=== PATIENT | female | born 1950 | race Caucasian/White ===

== ENCOUNTER 2020-12-13 12:45 | Inpatient (IN) | payer OTHER ==
[~2020-12-13] VITALS: Ht 162.6 cm; Wt 76.2 kg
--- NOTE | ~2020-12-13 | EMS ---
[facility] [address] [place] [address] EMS Patient Care Report Name: GABRIELLA LICONA Room #: 170-3 ADM IN M.R.#: [id number] Admission: 12/13/20 Attend Phys: Janet Ha MD Discharge: Date of : 48 Report #: [id number] THIS REPORT FOR: //name// Report Transmitted: 12/14/2020 07:59 EMS Care Summary [place], [place]/[facility] Incident [id number] @ 12/13/2020 12:25 Incident Location [address] [place] Patient GABRIELLA LICONA Female, 70 Years 1950 Patient Address [address] [place], [place] [address] [address] [address] Patient History Congestive Heart Failure (CHF),Diabetes,Hypertension (HTN),Pacemaker/AICD,End Stage Renal Disease (ESRD),Cirrhosis of Liver,Liver Failure,Coronary Artery Bypass Graft (CABG),Atrial Fibrillation,Peripheral Vascular Disease,Dialysis,Myocardial Infarction (FL), Patient Allergies No known allergies, Patient Medications Furosemide, Ascorbic Acid, Toradol, Metoprolol, Atorvastatin, Nitroglycerin, Midodrine, Prednisone, Tresiba, Chief Complaint Rectal bleeding Disposition Transported No Lights/[place] Dispatch Reason Sick Person Transported To [facility] [address] [place] [address] EMS Patient Care Report Name: GABRIELLA LICONA Room #: 170-3 ADM IN [facility].#: [id number] Admission: 12/13/20 Attend Phys: Janet Ha MD Discharge: Date of : 48 Report #: [id number] Narrative Arrived to meet P36 on scene with the patient. P36 and the [place] staff reported that the patient had significant rectal bleeding. NH staff reported that the patient had started to have bleeding at some point during the day, unknown what time specifically. Patient reported pain in her buttocks. Patient denied any chest pain, soa, dizziness, lightheadedness, or n/v. Patient had multiple necrotic fingers and toes and multiple necrotic wounds on her legs and abdomen, all of which were baseline for the patient. NH staff reported that prior to P36 or M42 arriving on scene the patient had a blood glucose of 40. NH staff reported giving the patient glucagon prior to arrival of either M42 or P36. Patient had severe pressure ulcer(s) to her buttocks region, the blood of the sheet underneath the patient was bright red and did not appear to have contain any stool. Patient was profoundly hypotensive with an absent radial pulse and weak thready carotid pulse. IV access unobtainable due to patient peripheral vascular disease. Patient transported and transferred to receiving facility without change in patient condition. Initial Vitals @12:38P: 80,R: 14,BP: 43/18,Pain: 4/10,GCS: 15,Revised Trauma: 9, @12:37P: 80,R: 14,BP: 58/40,Pain: 4/10,GCS: 15,Glucose: 286,Revised Trauma: 10, Assessments @12:31MENTAL:Place Oriented,Time Oriented,Person Oriented,Event Oriented,SKIN:Pale,HEENT:Head/Face: No Abnormalities,Neck/Airway: No Abnormalities,LUNG SOUNDS:ABDOMEN:PELVIS//GI:Rectal Bleeding,Pelvis Other,EXTREMITIES:Left Arm: No Abnormalities,Right Arm: No Abnormalities,Left Leg: No Abnormalities,Right Leg: No Abnormalities,PULSE:Radial: Absent,Carotid: 1+ Thready,NEURO:No Abnormalities, Impression Hemorrhage Procedures @PTAALS AssessmentResponse: UnchangedSucceeded@12:373-Lead ECGResponse: UnchangedSucceeded Timeline CLINICAL ACCOUNT LIAISON,ALS Assessment,Response: UnchangedSucceeded, 12:12,Call Received 12:12,Dispatch Notified 12:25,Dispatched 12:25,En Route 12:29,On Scene 12:31,At Patient 12:37,3-Lead ECG,Response: UnchangedSucceeded, 12:37,BP: 58/40 M,PULSE: 80,RR: 14 R,SPO2: Ox,ETCO2: ,B,PAIN: 4,GCS: 15, [address] [address] EMS Patient Care Report Name: GABRIELLA LICONA Room #: 170-3 ADM IN M.R.#: [id number] Admission: 12/13/20 Attend Phys: Janet Ha MD Discharge: Date of : 48 Report #: [id number] 12:38,BP: 43/18 M,PULSE: 80,RR: 14 R,SPO2: Ox,ETCO2: ,BG: ,PAIN: 4,GCS: 15, 12:39,Depart Scene 12:41,At Destination 12:57,Call Closed Disclaimer v1.1 Copyright 2020 [employer] This EMS Care Summary contains data elements from the applicable legal record (which may be displayed differently). It is designed to provide pertinent information for the following purposes: continuity of care, clinical quality, and state data reporting. The complete legal record is available to ED staff and administrators of the receiving hospital in [employer] Patient Tracker. All data is provided "as is."
[2020-12-13 12:46] VITALS: BP 90/20
[2020-12-13 13:10] LABS: HEMATOCRIT 29.1 % (37.0-47.0); HEMOGLOBIN 9.2 gm/dL (12.0-15.0); MCH 28.2 pg (26.0-34.0); MCHC 31.7 g/dL (28.0-37.0); PLATELET COUNT 135 thou/uL (150-400); RBC 3.26 mil/uL (4.20-5.00); RDW 19.1 % (10.5-14.5); WBC 24.5 thou/uL (4.0-11.0)
[2020-12-13 13:15] LABS: CALCIUM 8.1 mg/dL (8.5-10.1); CREATININE 4.5 mg/dL (0.6-1.0); POTASSIUM 4.5 mmol/L (3.5-5.1)
[2020-12-13 13:21] LABS: ALBUMIN 1.6 g/dL (3.4-5.0); TOTAL PROTEIN 4.9 g/dL (6.4-8.2)
[2020-12-13 13:49] LABS: ABSOLUTE NEUTROPHILS 22.5 thou/uL (1.4-8.2); PLATELET ESTIMATE NORMAL
--- NOTE | 2020-12-13 13:51 | EKG ---
[address] [place] [address] ELECTROCARDIOGRAM REPORT Name: GABRIELLA LICONA Room #: REG [facility]#: [id number] Admission: 12/13/20 Attend Phys: Discharge: Date of : 48 Report #: [id number] [facility] ED Test Date: 2020-12-13 Test Time: 13:06:44 Pat Name: GABRIELLA LICONA Department: Room: Gender: F Director Of Outside Sales: keli : 1950 Requested By: Monster Oswald Order Number: [id number] MD: Deandre Recinos Measurements Intervals Wallace Rate: 90 P: 68 MO: 145 QRS: -11 QRSD: 89 T: -24 QT: 398 QTc: 487 Interpretive Statements Sinus rhythm Borderline T abnormalities, diffuse leads Borderline prolonged QT interval No previous ECG available for comparison Electronically Signed On 12-13-2020 13:51:03 CDT by Deandre Recinos [email or web address] <ELECTRONICALLY SIGNED> By: Deandre Recinos MD, [facility] 12/13/20 1351 1306 1306 Deandre Recinos MD, FACC /EPI
[2020-12-13 14:35] LABS: APTT 37.2 Seconds (24.5-32.8); INR 1.39; PROTIME 14.9 Seconds (10.5-12.1)
--- NOTE | 2020-12-13 14:47 | NUR ---
A #6F TRIPLE LUMEN CENTRAL LINE WAS PLACED PER HOSPITAL POLICY AFTER A BEDSIDE TIMEOUT WAS COMPLETED. THE PATIENT VERBALIZED UNDERSTANDING OF BENIFITS AND RISK FOR INFECTION AND VESSEL WAS DAMAGE. THE 25CM LINE ADVANCED WITHOUT DIFFICULTY. A STAT CHEST XRAY CONFIRMED THE LINE WAS IN PROPER POSITION. ER NOTIFIED AND LINE RELEASED FOR USE
[2020-12-13 15:05] LABS: % SATURATION 35 % (20-39); IRON 26 ug/dL (50-170); TIBC 74 ug/dL (250-450)
[2020-12-13 15:40] LABS: FOLIC ACID 11.9 ng/mL (8.6-58.9)
--- NOTE | 2020-12-13 16:20 | NUR ---
DR WARD PAGED AND IS AWARE OF LOW B/P, DR WARD STATED THAT B/P'S ARE NORMALLY LOW AND TO DC ANY IV FLUIDS INFUSING. B/P 69/20. DR CHAPMAN AWARE OF CONVERSATION WITH DR WARD.
--- NOTE | 2020-12-13 18:04 | NUR ---
70 year old female who came into the ER at [facility] with rectal bleeding. Patient resides at [facility]. The patients spouse reports that patient has been getting paracentesis done every week. She was apparently turned down by and [facility] for liver transplant. He reports that the bleeding started yesterday at the SNF. The patient has been admitted for Hematochezia, Diverticular bleed, Symptomatic hypotension, Cirrhosis of the liver - Ascites, Diabetes, Multiple necrotic digits as elbow, thigh and pannus, ESRD and warrant server debility. Consults for Cardiology, Renal and Gi have been ordered. Discussion on palliative care versus hospice have begun with primary and renal team. Notably patient is Negative in ED for ID now and ED triage assessment notes no to vaccination status. And plan is to admit to CCU status in critical condition. Of note patient was documented as alert and oriented x4 and participated with ED physician in her care. Patients spouse Monster Cedeño is listed as next of kin at [phone]. Sofi at [facility] is aware of patients admission and will follow with CM team and plan of care once established and discussed with Medical Team and family. CM will follow for discharge needs once plan of care has been determined.
[2020-12-13 20:16] LABS: HEMATOCRIT 22.6 % (37.0-47.0)
[2020-12-13 20:22] LABS: HEMOGLOBIN 7.2 gm/dL (12.0-15.0)
[2020-12-13] MEDS ORDERED: ASA81BEC PO (21:38)
[2020-12-13] MEDS ORDERED: APAP W/CODEINE1 TA2 PO (21:38)
[2020-12-13] MEDS ORDERED: VITAMIN C500 M2 PO (21:38)
[2020-12-13] MEDS ORDERED: CEPACOL SORE T1 EAC7 PO (21:39)
[2020-12-13] MEDS ORDERED: FUROSEMIDE 40 M40 MG PO (21:39)
[2020-12-13] MEDS ORDERED: ATORVASTATIN CA80 MG PO (21:39)
[2020-12-13] MEDS ORDERED: ACULAR LS5 ML OPHTHALMIC (21:40)
[2020-12-13] MEDS ORDERED: MEGESTROL ACETA40 MG PO (21:41)
[2020-12-13] MEDS ORDERED: NEPHRO-VITE TA0.8 MG PO (21:43)
[2020-12-13] MEDS ORDERED: MIDODRINE HCL 55 M1 PO (21:43)
[2020-12-13] MEDS ORDERED: TOPROL XL25 MG PO (21:43)
[2020-12-13] MEDS ORDERED: NITROSTAT0.4 M1 DISSOLVE (21:44)
[2020-12-13] MEDS ORDERED: OXYCODONE HCL5 MG PO (21:45)
[2020-12-13] MEDS ORDERED: PROTONIX40 M2 PO (21:46)
[2020-12-13] MEDS ORDERED: PREDNISOLONE ACE5 ML RT. EYE (21:46)
[2020-12-13] MEDS ORDERED: RENVELA0.8 GM PO (21:47)
[2020-12-13] MEDS ORDERED: REFRESH CLASSI1 EACH EA. EYE (21:47)
[2020-12-13] MEDS ORDERED: SODIUM THI12.5 GM/50 IV PUSH (21:48)
[2020-12-13] MEDS ORDERED: TRESIBA100 UNIT/1 SUBQ (21:49)
--- NOTE | 2020-12-13 23:14 | NUR ---
TRINIDAD CALLED TO INFORM HIM OF HOSPITALIST ORDER TO TRANSFUSE UNIT OF BLOOD.
[2020-12-14] VITALS (44 sets, daily range): BP systolic 50–147; BP diastolic 21–108
[2020-12-14 03:42] LABS: BE(vivo) -2.3 mmol/L (-2 to +3); HCO3 21.2 mmol/L (22.0-26.0); PCO2 31.2 mmHg (35.0-45.0); PO2 263.4 mmHg (80.0-100.0); sO2 99.7 % (92.0-98.0)
--- NOTE | 2020-12-14 05:07 | NUR ---
PER DR. BOYD, NURSING STAFF SHOULD CONTINUE WITH TRANSFUSION OF SECOND UNIT OF BLOOD AND "SUPPORT HER FOR A FEW MORE HOURS" AND INTERVENTIONAL RADIOLOGY WILL "GET TO HER IN THE LIGHT OF DAY". ORDERS VERBALLY REPEATED BACK TO PHYSICIAN WITH CURRENT VITAL SIGNS OF BP: 77/57, HR: [address] LAWLER HAS BEEN PAGED MULTIPLE TIMES FOR FURTHER DIRECTION AND ORDERS REQUESTED BY JOANNA GUSTAFSON NP WITH NO RETURN CALL AT THIS TIME. NO NEW ORDERS RECEIVED. WILL CONTINUE TO MONITOR AND "SUPPORT" PATIENT WITH CURRENT ORDERS
--- NOTE | 2020-12-14 06:13 | NUR ---
DR. LAWLER CALLED BACK AT THIS TIME AFTER MULTIPLE ATTEMPTS TO REACH FOR NEW ORDERS IN HOW CARE SHOULD BE MANAGED AT THIS POINT. DR. LAWLER INFORMED OF PATIENT CONDITION, REQUIRING OXYGEN SUPPORT, INCREASED BLEEDING FROM RECTUM, DECREASING BLOOD PRESSURES. DR. LAWLER STATES HE WILL BE IN THE HOSPITAL IN APPROX 30 MINUTES AND HE "WILL SEE WHAT HE CAN DO" AND "SOMEONE NEEDS TO SPEAK WITH THE SON" (PATIENT WAS AT BEDSIDE FOR MOST OF THE NIGHT, PERHAPS DR. LAWLER MEANT THAT SOMEONE NEEDS TO SPEAK WITH THE PATIENT WHO IS ALERT AND ORIENTED AND THE REGARDING PLAN OF CARE AND PROGNOSIS). NO NEW ORDERS RECEIVED. WILL CONTINUE TO MONITOR AND ATTEMPT TO SUPPORT PATIENT WITH NO NEW ORDERS.
--- NOTE | 2020-12-14 07:00 | NUR ---
DR. LAWLER TO BEDSIDE TO ASSESS PATIENT AT THIS TIME. PHYSICIAN MOTIONED TO THIS NURSE TO COME INTO THE ROOM BY WIGGLING HIS FINGER. PHYSICIAN AT BEDSIDE STATING THAT PATIENT HAS NORMALLY LOW BLOOD PRESSURE AND THAT READINGS ARE NOT ACCURATE. PHYSICIAN UNABLE TO PROVIDE ANY SUGGESTION FOR HOW HE WOULD LIKE ACCURATE BLOOD PRESSURES MONITORED DUE TO PATIENT'S CALCIFICATED BLOOD VESSELS. THIS NURSE EXPLAINED TO PHYSICIAN AT BEDSIDE THAT WHILE PATIENT IS MENTATING APPROPRIATELY, SHE IS EXPERIENCING LARGE VOLUME LOSS FROM HER RECTUM. DR. LAWLER MADE IT CLEAR TO THIS NURSE IN FRONT OF PATIENT THAT HE IS ONLY HANDLING DIALYSIS. THE OTHER PROBLEMS ARE NOT HIS TO MANAGE. THIS NURSE EDUCATED DR. LAWLER THAT HE WAS UNABLE TO BE REACHED FOR HOURS THROUGH THE NIGHT. THE NURSE PRACITIONER FOR THE HOSPITALIST REQUESTED HE BE NOTIFIED. NO ORDERS RECEIVED TO REPLACE ANY VOLUME LOSS BECAUSE HE IS MANAGING THE DIALYSIS PART OF THIS PATIENT'S CARE, HE WILL NOT ADDRESS LARGE VOLUME LOSS BECAUSE WE ARE UNABLE TO OBTAIN AN ACCURATE BLOOD PRESSURE AND SHE IS TO HAVE NO FLUIDS/FLUID RESUSCITATION UNDER ANY CIRCUMSTANCE. BLOOD PRODUCTS ARE ACCEPTABLE. NOTHING ELSE.
--- NOTE | 2020-12-14 07:26 | NUR ---
[facility] CALLED, AWARE OF LOW BP, 71/25, NO FLUIDS NEEDED, DIAYLSIS PT, DUE TO DESATING WITH BLOOD, [facility] IS AWARE OF BLOOD LOSS FROM RECTAL DOES NOT WANT TO REPLACE FLUIDS, ALBUMIN ORDERED PER [facility], AWARE THAT PATIENT WILL BE SITTING IN THE ER. WANTED TO KEEP UPDATED, BP FOR ALBUMIN FOR NOW, ONCE GETS TO ICU NEW ORDERS WILL BE PLACED, POSSIBLE LEVOPHED. WANTING UPDATES TO SEE IF PT IS GOING TO NEED/WHEN DIALYSIS. PER [facility] BP LOW DUE TO CALCIFIED BLOOD VESSLES, BP NO ACCUCATE SINCE PT IS AWAKE AND TALKING TO HIM.
--- NOTE | 2020-12-14 09:29 | NUR ---
teresa received a call 12/14 [phone] FROM CARLINE AT [facility] ASKING WHICH UNIT THIS PATIENT WAS ON. TERESA NOTIFIED HER PT IS STILL IN ED HOLDING AWAITING A BED. SHE REPORTS PT IS FROM THEIR SNF AND HAS MEDICALLY COMPLEX. PT HAS WOUND CARE, GETS DIALYSIS, AND ALSO HAS A PARACENTESIS WEEKLY. SHE STATES THEIR FACILITY HAD ARRANGED TRANSPORT WEEKLY TO TAKE HER TO AND FROM PARACENTESIS. CARLINE REPORT PT AND HAVE HAD COMPLAINTS ABOUT THE FACILITY AND MAY WANT TO LOOK ELSEWHERE. CARLINE AT [facility] STATING THEY CAN ACCEPT PATIENT BACK AND HAVE BEEN SENDING REFERRALS TO ALTERNATE PLACES BUT HAVE NOT BEEN ABLE TO FIND ALTERNATE PLACEMENT AT THIS TIME. PT ORIGINALLY CAME TO THEM FROM [facility]. CARLINE STATING IF PT AND ARE WANTING ALTERNATE PLACEMENT [facility] [place] [facility] THEY RECENTLY OPENED A DIALYSIS UNIT THERE. CARLINE FROM [facility] REQUESTING CLINICAL, TERESA FAXED CLINICAL.
[2020-12-14 12:35] LABS: ALBUMIN 2.1 g/dL (3.4-5.0); CALCIUM 8.3 mg/dL (8.5-10.1); CREATININE 4.5 mg/dL (0.6-1.0); PHOSPHORUS 6.6 mg/dL (2.6-4.7); POTASSIUM 5.1 mmol/L (3.5-5.1)
[2020-12-14 14:05] LABS: COLOR YELLOW; TOTAL VOLUME 55 mL
[2020-12-14 14:06] LABS: BF NUCLEATED CELLS 210 /mm3; BF RBC 536 /mm3; CLARITY SL CLOUDY
[2020-12-14 17:45] LABS: HEMATOCRIT 34.7 % (37.0-47.0); HEMOGLOBIN 11.2 gm/dL (12.0-15.0)
[2020-12-14 18:25] LABS: BF MACROPHAGE 46 %; BF NEUTROPHILS 44 %; SOURCE ABDOMINAL
--- NOTE | 2020-12-14 18:43 | NUR ---
PT ARRIVED FROM ER AT 1410 PM. PT WAS ACCOMPANIED BY DELIVERY ROOM SUPERVISOR AND NURSING STAFF. PT CONNECTED TO ICU MONITORS. PT ALERT AND ORIENTED X3. PT WAS ON LEVOPHED, PROTONIX AND OCTREOTRIDE GTT ON ARRIVAL TO ICU. EMERGENT DIALYSIS WAS BEING SETUP BY ROOM CLEANER HERVE. NECROTIC WOUNDS ALL OVER PATIENT BODY. WOUND NURSE CHECK PATIENT AT THE BEDSIDE. UPDATED ON PATIENT CONDITION AND WAS UPDATED ABOUT ICU VISITATION POLICY/ ICU PHONE NUMBERS. CONSENT FOR TOMORROW FLEX SIGMOIDSCOPY.
--- NOTE | 2020-12-14 22:09 | NUR ---
Upon assessing patient, this RN tried to clean patient up as patient is incontinent of bowels. Patient refused and asked for numbing cream or some sort or pain medication. Discussed with LES Castillo, orders received.
[2020-12-15] VITALS (77 sets, daily range): BP systolic 85–136; BP diastolic 13–87
--- NOTE | 2020-12-15 00:26 | NUR ---
Patient had a bowel movement. Crying to RN that before we clean her up she needs numbing pain, always demands we can't turn her because it hurts so bad. Educated patient on situation and reality. Called LES Castillo at 2210, orders for pain medication received. Returned to patient and discussed situation. Patient states she "just wants to " and says "what will it take for you to just knock me out". Discussed with LES Castillo. Provider aware and will assess patient soon.
[2020-12-15 03:49] LABS: HEMATOCRIT 30.8 % (37.0-47.0); HEMOGLOBIN 9.7 gm/dL (12.0-15.0); MCH 28.2 pg (26.0-34.0); MCHC 31.5 g/dL (28.0-37.0); MCV 89.6 fL (80.0-100.0); RBC 3.44 mil/uL (4.20-5.00); RDW 17.4 % (10.5-14.5); WBC 32.5 thou/uL (4.0-11.0)
[2020-12-15 03:55] LABS: INR 1.57; PROTIME 16.8 Seconds (10.5-12.1)
[2020-12-15 04:06] LABS: CALCIUM 8.6 mg/dL (8.5-10.1)
[2020-12-15 04:46] LABS: CREATININE 2.7 mg/dL (0.6-1.0); POTASSIUM 4.1 mmol/L (3.5-5.1)
[2020-12-15 05:16] LABS: PLATELET COUNT 212 thou/uL (150-400)
[2020-12-15 09:11] LABS: ABSOLUTE NEUTROPHILS 31.5 thou/uL (1.4-8.2); PLATELET ESTIMATE NORMAL
[2020-12-15 10:44] LABS: SOURCE ABDOMINAL
[2020-12-15 15:08] LABS: HEPATITIS B SURFACE AG Negative (Negative)
--- NOTE | 2020-12-15 15:09 | NUR ---
chart review. unable to visit with luiz r/t going to EGD today. Dudely returned [place] message from [place] [facility] # [phone], dudley called her back, she passed on that she was had been consulted and was going to start palliative care for luiz, she was cont to have dialysis and going in and out for paracentesis. markie had tried to get her to go ltc with hospice but she and cam were not ready yet. Will cont following as needed for dc needs.
[2020-12-15 18:36] LABS: HEMATOCRIT 25.1 % (37.0-47.0); HEMOGLOBIN 8.2 gm/dL (12.0-15.0)
--- NOTE | 2020-12-15 18:45 | NUR ---
spouse remained at bedside for several hours today providing support for to pt. updated on all cares as provided.
[2020-12-16] VITALS (77 sets, daily range): BP systolic 82–134; BP diastolic 14–63
--- NOTE | 2020-12-16 05:35 | HC ---
[facility] [place] [address] CONSULTATION Name: GABRIELLA LICONA Room #: 249-P ADM IN M.R.#: [id number] Admission: 12/13/20 Attend Phys: Janet Ha MD Discharge: Date of : 48 Report #: [id number] THIS REPORT FOR: cc: Balbir Kwok MD, Christopher B. MD Barry, Joseph W. MD ~ DATE OF SERVICE: 12/15/2020 INFECTIOUS DISEASE CONSULTATION ATTENDING PHYSICIAN: Dr. Ha. REASON FOR EVALUATION: Possible sepsis in setting of gastrointestinal hemorrhage. HISTORY OF PRESENT ILLNESS: Chart reviewed. The patient was examined. This is a 70-year-old woman with extensive medical history including end-stage renal disease on dialysis, also advanced liver disease, who presented to the emergency room on 12/13/2020, noted to have bright red blood per rectum, hypotension, had undergone dialysis earlier the day before. In addition, apparently has chronic pain typically, although currently she is not experiencing any. She was evaluated and found to have a lower GI hemorrhage. She was resuscitated, given fluids, did undergo paracentesis as well. As for the evaluation, blood cultures were collected and they are sterile thus far. Initial labs showed an albumin of 1.6, mildly elevated hepatic transaminases, creatinine of 4.5 consistent with her end-stage renal disease. Chest x-ray, possible bilateral infiltrates. Coronavirus testing was negative. White count was elevated at 24.5 with a hemoglobin of 9.2. CT of the abdomen and pelvis was obtained, showed cirrhosis and portal venous hypertension with a large amount of ascites and mild splenomegaly, no evident focal pyogenic and inflammation. Lactic acid was 3.4. Procalcitonin 2.70. Lactic acid was repeated as 1.9. Did undergo transfusion of packed red cells. Underwent paracentesis. Fluid analysis showed to be yellow, slightly cloudy, 210 nucleated cells, 536 red cells. She was empirically started on therapy with ceftriaxone and azithromycin. ALLERGIES: CONTRAST DYE, PENICILLINS. CURRENT MEDICATIONS: Include azithromycin, norepinephrine, pantoprazole. PAST MEDICAL HISTORY: As described above, diabetes mellitus complicated by vasculopathy. Nonalcoholic liver disease with cirrhosis, requiring weekly paracentesis, end-stage renal disease on dialysis, history of esophageal varices with GI hemorrhage, sick sinus syndrome, post-pacemaker placement, hyperlipidemia, ischemic cardiomyopathy, anxiety, depression. SOCIAL HISTORY: Nonsmoker, no ethanol, no illicit drug use. [address] [address] CONSULTATION Name: GABRIELLA LICONA Room #: 249-P [facility] IN M.R.#: [id number] Admission: 12/13/20 Attend Phys: Janet Ha MD Discharge: Date of : 48 Report #: [id number] FAMILY HISTORY: Noncontributory. REVIEW OF SYSTEMS: Somewhat limited. She is essentially denying any pain or any particular discomfort. There are no pulmonary or gastrointestinal related complaints. PHYSICAL EXAMINATION: GENERAL: Appears chronically ill and undernourished. She is pale. Flat affect, mild to moderate distress. VITAL SIGNS: Temperature 98.3, pulse 104, respirations 11, blood pressure aided pressor support at 105/35. SKIN: Warm, dry. HEENT: Normocephalic. Extraocular muscles intact. Nasal cannula in place, 6 liters per minute. NECK: Supple. LUNGS: Diminished, otherwise clear breath sounds. HEART: Distant, borderline tachycardic. Some irregularity. ABDOMEN: Mildly distended, somewhat firm, it is nontender. EXTREMITIES: No cyanosis. GENITOURINARY AND RECTAL: Deferred. LABORATORY DATA: Paracentesis fluid analysis is pending. Count, 210 nucleated cells, 536 rbc's, 44 neutrophils, 46 macrophages. CBC: White count of 32.5, H and H 9.7 and 30.8, platelets of 212. Electrolytes: Sodium 134, potassium 4.1, chloride 96, bicarbonate 17, anion gap of 21, BUN and creatinine 27 and 2.7, estimated GFR 17. Blood cultures sterile thus far. Pleural fluid, no growth. ASSESSMENT AND PLAN: Septic shock, complicated by multiorgan dysfunction, acute on chronic. We will adjust antimicrobial therapy. At this point, I do not have focal area of pyogenic infection. Certainly can have a degree of community-acquired pneumonia, although it is difficult to ascertain likely multifactorial. At this point, blood cultures are sterile. She makes no urine. Really no head and neck complaints. Abdominal pelvic evaluation including paracentesis has been otherwise unremarkable as well. She clearly is quite tenuous at this point, would continue ICU level support. We will pursue any particular signs or symptoms, which may help localize any sort of infection. <ELECTRONICALLY SIGNED> By: Brian Loya MD 12/16/20 0535 [id number] Brian Loya MD /nt
--- NOTE | 2020-12-16 09:23 | NUR ---
alexi left message with palliative OVERNIGHT HOUSEPERSON and with dillan with [facility] and she been talking with patient and spouse prior to hospital.
--- NOTE | 2020-12-16 10:00 | NUR ---
ASSUMMED CARE OF THIS PATIENT FROM THE NIGHT NURSE AT 0700 TODAY. HEMODIALYSIS IN PROGRESS. PATIENT REMAINS ON LEVOPHED. PATIENT ORIENTED TO PERSON, PLACE AND SITUATION, PATIENT STATED TO THIS NURSE THAT SHE WANT TO BE GIVEN MORPHINE FOR COMFORT AND WHEN SHE WAKES UP TO GIVE HER SOME MORE. PATIENT ASKED IF SHE WISH TO HAVE COMFORT CARE AND EXPLAINED THAT A PROVIDER WOULD BE SEEING HER IN REGARDS TO MAKING A PLAN FOR COMFORT CARE TODAY.
--- NOTE | 2020-12-16 11:01 | HC ---
[facility] [place] [address] CONSULTATION Name: GABRIELLA LICONA Room #: 249-P ADM IN M.R.#: [id number] Admission: 12/13/20 Attend Phys: Janet Ha MD Discharge: Date of : 48 Report #: [id number] THIS REPORT FOR: cc: Balbir Kwok MD,Will Tejeda MD, MD ~ DATE OF SERVICE: 12/15/2020 WOUND CARE CONSULTATION PERSONAL PHYSICIAN: Chano Kwok MD CHIEF COMPLAINT: Calciphylaxis with multiple wounds. 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 The patient is currently admitted for rectal bleeding. We have been asked to follow the patient for these calciphylaxis wounds. The patient states that intermittently she does have significant pain associated with these wounds; however, at this point in time, they have just given her pain medicine and she is actually feeling fairly comfortable. The patient is on sodium thiosulfate per the renal physicians for treatment of the calciphylaxis. The patient herself denies any other associated wounds. PAST MEDICAL HISTORY: Significant for liver cirrhosis, end-stage renal disease, on hemodialysis, the calciphylaxis, coronary artery disease, status post CABG, cardiomyopathy with a pacemaker. CURRENT MEDICATIONS: Multiple, I reviewed the patient's medication list. DRUG ALLERGIES: CONTRAST DYE AND PENICILLIN. SOCIAL HISTORY: The patient does not smoke or drink alcohol. Currently lives in a long-term care facility. FAMILY HISTORY: Not pertinent to current medical condition. REVIEW OF SYSTEMS: CONSTITUTIONAL: The patient denies fevers or chills. NEUROLOGIC: The patient complains of overall generalized weakness, but no isolated weakness in arms or legs. EYES: No complaints. EARS, NOSE AND THROAT: No complaints. CARDIAC: The patient denies chest pain, palpitations, but has chronic lower extremity edema. [facility] [address] [place] [address] CONSULTATION Name: GABRIELLA LICONA Room #: 249-P [facility] IN M.R.#: [id number] Admission: 12/13/20 Attend Phys: Janet Ha MD Discharge: Date of : 48 Report #: [id number] RESPIRATORY: The patient denies shortness of breath, cough or wheezes. GASTROINTESTINAL: The patient complains of mild nausea, but no actual abdominal pain or vomiting. The patient also is here for rectal bleeding. GENITOURINARY: The patient denies urgency or frequency. MUSCULOSKELETAL: No complaints. SKIN: The patient has multiple significant calciphylaxis wounds. PHYSICAL EXAMINATION: VITAL SIGNS: Temperature 36.1, pulse 106, respirations 13, BP 122/45. GENERAL: This is an alert and oriented x [address], but not time, white female who is in no acute distress at this time. HEENT: Normocephalic, atraumatic. Mucous membranes are dry. Pupils are round. Sclerae white. NECK: Without JVD. LUNGS: Slightly diminished breath sounds heard throughout. HEART: Tachycardic. ABDOMEN: Soft with areas of necrosis and calciphylaxis wound on the lower pannus and bilateral breasts. All these are fairly dry eschar. EXTREMITIES: Evaluation of sacral gluteal region reveals significant areas of necrosis with a black eschar, which is dry and intact. Evaluation of extremities, bilateral hips have calciphylaxis wounds, which are dry and intact eschar. Bilateral thighs have calciphylaxis wounds with dry and intact eschar. Bilateral heels are intact. NEUROLOGIC: Cranial nerves 2-12 are grossly intact. Motor and sensory are grossly intact. The patient has dry gangrene to the second and third fingers of the right hand. LABORATORY DATA: White count 32.5, hemoglobin 9.7, BUN 27, creatinine 2.7, albumin 2.1. IMPRESSION: 1. Multiple necrotic ulcers to the bilateral breasts, abdominal pannus, bilateral thighs, bilateral hips and sacral and gluteal region secondary to calciphylaxis. 2. Dry gangrene of second and third fingers of the right hand. 3. Skin tears to bilateral forearms. 4. Hematochezia with diverticular bleed. 5. Symptomatic hypotension. 6. Cirrhosis of the liver with ascites and elevated liver enzymes. 7. End-stage renal disease, on hemodialysis. 8. Type 2 diabetes. 9. Severe debility with weakness. 10. Ischemic cardiomyopathy with sick sinus syndrome, status post pacemaker placement. 11. Severe protein-calorie malnutrition with albumin of 2.1. [address] [address] CONSULTATION Name: GABRIELLA LICONA Room #: 249-P ADM IN M.R.#: [id number] Admission: 12/13/20 Attend Phys: Janet Ha MD Discharge: Date of : 48 Report #: [id number] PLAN: On all the necrotic areas for pain relief, we will start morphine, Silvadene cream and cover this with Xeroform and ABD twice daily and p.r.n. We will put the patient on low air loss surface, have her turned every 2 hours. On the fingers of the right hand, we will start with Betadine daily and p.r.n. We will place bordered foam to the bilateral forearms, change daily and p.r.n. GI is following the patient for the hematochezia. Nephrology is following the patient for the calciphylaxis since the patient is once again started on sodium thiosulfate. We will try to maximize the patient's oral protein supplementation for healing. We will utilize physical and occupational therapy as the patient is able. The prognosis for this patient is very poor. I appreciate the ability to consult. <ELECTRONICALLY SIGNED> By: Will Jack MD 12/16/20 1101 0719 08 Will Jack MD /nt
--- NOTE | 2020-12-16 12:07 | PATH ---
[facility] [address] [place] [address] PATHOLOGY RPT PROCEDURE Name: GABRIELLA LICONA Room #: 249-P ADM IN M.R.#: [id number] Admission: 12/13/20 Date of : 48 Discharge: Report #: [id number] Path Case #: [id number] Note [facility] Accession Number: [id number] TESTS RESULT FLAG UNITS REF RANGE LAB Clinician Provided Cytology Information No. of containers..01 Other (Miscellaneous) Source: ABDFLD DIAGNOSIS: 02 ABDOMINAL FLUID NEGATIVE FOR MALIGNANT EPITHELIAL CELLS. SCANT CELLULARITY. RARE REACTIVE MESOTHELIAL CELLS ARE PRESENT. THIS INTERPRETATION INCLUDES EVALUATION OF A CELL BLOCK. Pathologist ICD10: 02 R18.8 Signed out by: 02 Rebekah Ovalle MD, Pathologist NPI- [id number] Performed by: 01 Mavis Linares, Tenter Frame Operator ([facility]) Gross description: 01 10ML, CLEAR STARLLLOW, 1 TP 1CB /LCS 12/15/2020 0400 Local FLAG LEGEND: L-Low Normal,H-High Normal,LL-Alert Low,HH-Alert High <-Panic Low,>-Panic High,A-Abnormal,AA-Critical Abnormal Performed at: [address] [place] [address] Tam Tripathi MD, [address] [address] Rebekah Ovalle MD, Specimen Comment: A courtesy copy of this report has been sent to [phone], [phone] Specimen Comment: [id number] Specimen Comment: Report sent to DR. CHAPMAN / DR CAR Specimen Comment: A duplicate report has been generated due to demographic updates. Performed at: [address], [place], [place] [address] [address] [address] PATHOLOGY RPT PROCEDURE Name: GABRIELLA LICONA Room #: 249-P ADM IN M.R.#: [id number] Admission: 12/13/20 Date of : 48 Discharge: Report #: [id number] Path Case #: [id number] MD Tam Tripathi MD Phone: [phone]
--- NOTE | 2020-12-16 13:00 | NUR ---
PATIENT ONLY ORIENTED TO PERSON NOW. UNABLE TO MAKE PLAN OF CARE WITH THE PALLATIVE CARE SUPERVISOR GRAIN AND YEAST PLANTS. LEVOPHED TAPPERRED DOWN.
--- NOTE | 2020-12-16 13:55 | EKG ---
[address] [address] ELECTROCARDIOGRAM REPORT Name: GABRIELLA LICONA Room #: 249- ADM IN M.R.#: [id number] Admission: 12/13/20 Attend Phys: Janet Ha MD Discharge: Date of : 48 Report #: [id number] [facility] Test Date: 2020-12-16 Test Time: 07:15:40 Pat Name: GABRIELLA LICONA Department: Room: 249 Gender: F Director Sports: RAMIRO : 1950 Requested By: Janet Ha Order Number: [id number] MD: Delbert Bowen Measurements Intervals [place] Rate: 109 P: 29 DC: 112 QRS: -64 QRSD: 109 T: 106 QT: 352 QTc: 475 Interpretive Statements Sinus tachycardia Left anterior fascicular block Probable anterior infarct, age indeterminate Compared to ECG 12/13/2020 13:06:44 Left anterior fascicular block now present Sinus rhythm no longer present T-wave abnormality no longer present Electronically Signed On 12-16-2020 13:54:51 CDT by Delbert Bowen [email or web address] <ELECTRONICALLY SIGNED> By: Delbert Bowen MD 12/16/20 1354 4 4 Delbert Bowen MD /EPI
[2020-12-16 14:08] LABS: BODY FLUID ALBUMIN 0.3 g/dL (Not Estab.); BODY FLUID AMYLASE 14 U/L (()); BODY FLUID GLUCOSE 81 mg/dL (()); BODY FLUID LDH 106 IU/L (()); BODY FLUID PROTEIN 0.9 g/dL (())
--- NOTE | 2020-12-16 20:26 | NUR ---
PALLATIVE CARE SPLITTER TENDER ABLE TO SPEAK WITH THE PATIENT'S , TRINIDAD. REASSURANCE GIVEN TO HIM AND THE PATIENT. CONTINUE TO JOVANNY THE LEVOPHED. FENTENYL GIVEN FOR TURNING AND WOUND CARE. PATIENT IS NOT PROGRESSING TOWARDS OUTCOME GOALS
[2020-12-17] VITALS (47 sets, daily range): BP systolic 59–140; BP diastolic 14–58
--- NOTE | 2020-12-17 17:48 | NUR ---
PT IS NOT PROGRESSING TOWARDS DISCHARGE AT THIS TIME, PRIMARY FOCUS BEING ON END OF LIFE CARE. DURING WOUND DRESSING CHANGE, PT HAS EXTENSIVE WOUNDS TO BILATERAL HIPS/SACRUM/INNER THIGHS/LATERAL THIGHS/ABDOMINAL FOLD/BREAST, ACTIVE BLEEDING SEEN FROM THE RECTUM. RN DISCUSSED WITH DPOA AT BEDSIDE REGARDING PER WANTED DISCUSSION WITH GERONTOLOGIST TO MAKE THE APPROPERIATE CHOICE. RN LOOKED AT THE NOTES AND APPEARS THAT PT HAD ALREADY SPOKEN WITH A GERONTOLOGIST GROUP YESTERDAY AND WAS AGREED UPON THAT [facility]. WHEN DISCUSSING THIS WITH THE TRINIDAD, HE SEEMED TO LACK THE KNOWLEDGE THAT LEVOPHED WAS GOING TO BE TURNED OFF AND WHAT THE PROCESS WAS TO LOOK LIKE, AND STATED THAT UNTIL THIS MORNING THE NURSES HAD TOLD HIM THAT SHE DID NOT WANT TO BE IN PAIN AND WANTED TO BUT HE DID NOT HEAR IT FOR HIMSELF AND FOR THE FIRST TIME THIS MORNING HE HEARD IT FROM HERSELF. MOVING FORWARD AT THIS TIME, PT'S DPOA TRINIDAD DOES WANT END OF LIFE/COMFORT CARE MEASURE TAKEN IN THIS MOMENT. RN CALLED GERONTOLOGY GROUP TO RETRIEVE END OF LIFE CARE ORDERS, WAS TOLD [facility]ISTER[facility] INSTRUMENT LENS GRINDER APPRENTICE WAS BISCUIT PACKER, RECEIVED CALL BACK FROM MINISTER[facility], STATED THAT SHE WAS NOT BISCUIT PACKER DURING THE WEEKEND. RN REACHED OUT TO TO ATTEMPT RETRIEVING END OF LIFE CARE ORDERS, STILL AWAITING CALL BACK AT THIS TIME. IN THE NOTE THERE WAS STATEMENT REGARDING A FRIEND WHO IS A HOSPICE NURSE THAT WAS TO BE PRESENT, BUT PER TRINIDAD, SHE CAN NO LONGER MAKE IT, WHEN ASKED IF THERES ANY OTHER FAMILY MEMBER THAT SHOULD BE PRESENT DURING THIS PROCESS, DPOA STATED AT THERE ARE NO OTHER PERSONELLE THAT NEEDS TO BE HERE. CURRENTLY AWAITING END OF LIFE CARE ORDERS FROM [facility].
[2020-12-17 22:26] LABS: HEMOGLOBIN 6.7 gm/dL (12.0-15.0)
[2020-12-17 22:27] LABS: HEMATOCRIT 20.6 % (37.0-47.0)
--- NOTE | 2020-12-17 23:14 | NUR ---
2119- Monitor shows afib RVR with rates in the 110-140s. This sustained and BP dropped as well. Increased levophed to 20 mcgs and called RADIO FREQUENCY ENGINEER database administration manager. 2199- Discussed situation with Yara RADIO FREQUENCY ENGINEER. Orders for Dig. 2234- DIG given. SBP holding with 20 mcgs of levophed. Blood noted from rectum. H/H results noted. HGb 6/7. 2299- Notified Yara of Hgb results. Blood ordered. New T&C needed. Lab to come over and band.
[2020-12-18] VITALS (45 sets, daily range): BP systolic 74–135; BP diastolic 16–66
--- NOTE | 2020-12-18 02:23 | NUR ---
Blood started. HR has come down into the low 100s after Digoxin. Blood pressure has stablized. Levophed continues at 20 mcgs. Patient crying out in pain with any repositioning.
[2020-12-18 05:48] LABS: HEMATOCRIT 24.4 % (37.0-47.0); HEMOGLOBIN 8.1 gm/dL (12.0-15.0); MCH 29.6 pg (26.0-34.0); MCHC 33.2 g/dL (28.0-37.0); MCV 89.2 fL (80.0-100.0); RBC 2.73 mil/uL (4.20-5.00); RDW 16.9 % (10.5-14.5); WBC 13.9 thou/uL (4.0-11.0)
[2020-12-18 05:59] LABS: CALCIUM 8.6 mg/dL (8.5-10.1); CREATININE 3.1 mg/dL (0.6-1.0); POTASSIUM 3.7 mmol/L (3.5-5.1)
--- NOTE | 2020-12-18 06:35 | NUR ---
Patient did convert back to sinus rhythm after digoxin was given. Rate has stayed in the low 100s. Blood pressure stable. Levophed currently at 17 mcgs. Patient cried out in pain when turned and does not want to be touched as everything is painful. , Monster is here this am at bedside. AM labs noted. Hbg better after blood. See documentation on interventions for assessment details.
--- NOTE | 2020-12-18 09:54 | NUR ---
CONTINUING FROM CARE YESTERDAY, RN HAS NOTIFIED THE HOSPITALIST AND PROVIDED UPDATE/DISCUSSED PLAN OF CARE AT THIS TIME. AT BEDSIDE VERBALLY STATED THAT HE WANTS TO FOLLOW THROUGH WITH COMFORT CARE MEASURES. PER , COMFORT CARE MEASURES TO BE TAKEN AND IF THE PATIENT SUSTAINS WITH LEVOPHED GTT OFF, THEN HOSPICE HOME TO BE CONSIDERED. SPOKE WITH ATTENDING PSYCHIATRIST REGARDING THIS, IN THE WEEKEND HOSPICE CARE IS DIFFICULT TO REACH, RN TO PROVIDED COMFORT MEDICATIONS PER MD's ORDER FOR THE TIME BEING THIS SHIFT. ALL MEDS TURNED OFF AT 0930, PROCEDURES EXPLAINED TO THE , WITH AGREEMENT OF COURSE OF CARE. MORPHINE/ATIVAN GIVEN PRIOR TO DRIPS TURNING OFF. PT SEEN IN ROOM SLEEPING. AT BEDSIDE. RN TO PROVIDE COMFORT CARE MEASURES THROUGHOUT THE DAY
--- NOTE | 2020-12-18 11:13 | NUR ---
PT RESTING COMFORTABLY AT THIS TIME IN BED. PT APPEARS TO BE IN NO DISTRESS OR PAIN. PT AT BEDSIDE, PT HR. B/P, PULSE OX ARE ALL MONITORED, AWARE OF CURRENT READINGS. WILL FOLLOW UP WITH PAIN MEDICATIONS PRN TO ENSURE COMFORT.
--- NOTE | 2020-12-18 16:29 | NUR ---
REMAINS BY PATIENT'S SIDE, FOOD, WATER/BEVERAGES AND RECLINER PROVIDED TO THE TO ASSIST IN THE CARE OF HIS . PATIENT IS RESTING COMFORTABLY, BREATHING ON 2LPM NC WITH OXYGEN SATURATION AT 100%, HR NSR IN 80'S, PT REMAINS HYPOTENSIVE. PT REMAINS ASLEEP AND ON COMFORT MEASURES.
--- NOTE | 2020-12-18 20:03 | NUR ---
PT RESTING QUIETLY, WILL GRIMACE WHEN MOVED, OTHERWISE RESP NON LABORED. FAMILY AGREED COMFORTABLE AT REST. VS WNL. CONT TO GIVE SUPPORT TO FAMILY. CONT PLAN OF CARE FOR COMFORT MEASURES ONLY.
--- NOTE | 2020-12-19 04:06 | NUR ---
Repositioned patient, rectal bleeding noted-cleaned pt and linens changed. weeping from wound sites-changed some drsg. pt moaning with care. will give Morphine as ordered. Cont plan of care
[2020-12-19 10:13] VITALS: BP 95/23
--- NOTE | 2020-12-19 11:27 | NUR ---
Patient transfered to [facility] via bed with ICU staff. Her was at bedside during transport. He expressed she did not have any belongings up here. It was noted she had earings in place. Report given to RN on [facility] prior to transfer. Nurse talked with Dr. Ha prior to leaving ICU with patient and she expressed we could give the Roxanol for pain and/or air hunger. This was relayed to the Pharmacist.
--- NOTE | 2020-12-19 14:02 | NUR ---
ON-GOING ASSESSMENT: CM REVIEWED CHART. PT WAS TRANSFERRED UP FROM ICU TODAY TO FOR COMFORT CARE PER BEDSIDE RN. CM MET WITH PATIENT AND HER AT THE BEDSIDE. CM DISCUSSED POSSIBLE HOSPICE HOUSE OPTIONS WITH AND THAT AN INFORMATIONAL VISIT COULD ALSO BE SET UP IF INTERESTED. REPORTING THAT HE WAS HOPING PT WOULD BE ABLE TO REMAIN HERE AND WANTS TO SEE HOW SHE DOES OVER THE NEXT 1-2 DAYS. CM UPDATED ATTENDING. CM ALSO UPDATED [facility] FROM [facility] WHERE PATIENT WAS FOR SNF. CM WILL CONTINUE TO FOLLOW TO ASSIST NEEDED.
--- NOTE | 2020-12-19 14:49 | NUR ---
Nutrition: Pt is comfort care. Deferring evals at this time.
--- NOTE | 2020-12-19 16:31 | NUR ---
cm passed on to cm team that dillan with [facility], is visiting and spouse cam need spiritual care support.
--- NOTE | 2020-12-19 18:00 | NUR ---
PT RECIEVED IN TRANSFER FROM ICU AT 1030 FOR MED/SURG PALLIATIVE CARE. KEEPING GARCIA AT BEDSIDE. PT OPENED EYES AND NODDED YES/NO THIS AM BUT HAS BECOME MORE SOMMULENT THROUGOUT SHIFT. OCCASIONAL MOANING AND IV MORPNINE GIVEN WHICH APPEARED TO CALM PT. SHE APPEARS TO BE RESTING COMFORTABLY. OCCASIONAL SHORT PERIODS OF APNEA NOTED. SUPPORTIVE CARE GIVEN TO .
[2020-12-19 20:28] VITALS: BP 86/34
--- NOTE | 2020-12-20 03:12 | NUR ---
Beginning of shift assessment complete. pt resting in bed, eyes closed, at bedside. Pt has no signs or symptoms indicating pain or discomfort at this time but will continue to monitor to ensure pt remains comfortable. 1 L of O2 placed on pt via nc for supplemental o2 for comfort. R SC hd cath CDI. L TL IJ Cdi. Education provided to on disease process. verbalized appreciation. multiple lesions and wounds noted. Pt repositioned. Therapuetic communication and support provided to . Pt remains calm, and in a peaceful state. will continue to monitor. call light in reach.
--- NOTE | 2020-12-20 07:43 | NUR ---
PT HAS MULTIPLE DRAINING WOUNDS WITH FOUL ODOR.PT'S STATED THAT HE WAS OKAY WITH THIS NUSRE CHANGING THE DRSG IT WAS SOAKED UNTO THE PAD ON THE BED.PAIN MED ADMINISTERED BEFORE PT WAS REPOSITIONED.PT'S STATED THAT THE PT WAS SUPPOSED TO BE GETTING HER MED Q4 HRS.PT'S WAS EDUCATED THAT THE MEDICATION WAS A PRN.PT WAS SLEEPING ALL NIGHT WITH NO SIGN OF DISTRESS AND DID NOT NEED THE MED.THIS MOWRNING WHEN THIS NURSE WENT INTO PT'S ROOM TO ADMINISTER HER MED,SHE NEEDED TO BE CHANGED.THE NURSE IN ORIENTATION AND THE SALES TRADER ON THE FLOOR CAHNGED THE PT AND REPOSITIONED HER AFTER THIS NURSE ADMINISTERED HER PAIN MED.THIS NURSE WENT BACK AND ASKED THE PT'S IF IT WAS OKAY FOR THE DRSG CHANGE TO BE PERFOREMED AFTER TWENTY MIN OF ADMINISTERING THE MEDICATION.HE REQUESTED THAT THE NURSE SHOULD COME BACK LATER .THIS NURSE WENT BACK TWENTY MIN LATER,THE PT'S STATED THAT HE DOESN'T WANT TO BE AROUND WHEN THE DRSG CHANGE IS PERFORMED.THIS NURSE WAS ABLE TO DO MOST OF THE DRSG CHANGES ,PT ELENA WELL.PT'S HAD PROBLEM UNDERSATNDING THAT THE PAIN MEDICATION IS A PRN AMD NOT A SCHEDULED MED AND IT TAKES A COUP;E OF MINUTES TO WORK.PT INSISTED THAT THE IV MORPHINE TAKES FORTY FIVE MIN TO WORK.ICE CHIPS OFFERED TO PT PER HER REQUEST.REPORT TO AM NURSE.
[2020-12-20 08:37] VITALS: BP 79/38
--- NOTE | 2020-12-20 09:16 | NUR ---
on-going assessment: CM RECEIVED CALL YESTERDAY AROUND 1630 FROM ICU CM STATING DESTINEY FROM [facility] WAS REQUESTING THAT SPIRITUAL CARE COME VISIT WITH PTS . CM REACHED OUT TO SPIRITUAL CARE AND SPOKE WITH HENRY WHO REPORTS SHE WAS GOING TO TALK WITH . CM SPOKE WITH PATIENTS AGAIN THIS AM HE IS AT THE BEDSIDE AND OFFERED SUPPORT. CM STATED IF HE IS WANTING PATIENT TO BE EVALUATED FOR THE HOSPICE HOUSE OR IS WANTING ANY ADDITIONAL INFORMATION THAT CM CAN SEND A REFERRAL FOR HIM. STATING THAT [facility]SE IS TOO FAR FOR HIM BUT HE MAY CONSIDER [facility] AND WANTED THE ADDRESS. CM PROVIDED HIM WITH THE ADDRESS FROM [facility]. PTS PREFERS PT TO REMAIN HERE AT [facility] BUT WILL SEE WHAT PHYSICIAN IS RECOMMENDING TODAY. CM OFFERED SUPPORT AND THAT CM CAN ASSIST WITH ANY PLANS FOR PATIENT. CM ALSO RECEIVED A VM FROM A DESTINEY AT [facility] REQUESTING A CALL BACK JESSEE. CM SPOKE WITH AND NOTIFIED HIM AND HE GAVE CONSENT TO CALL DESTINEY BACK AND SPEAK WITH HER. CM ATTEMPTED TO REACH DESTINEY BACK AT 0915AM [phone] BUT UNABLE TO REACH AND VM LEFT. CM WILL CONTINUE TO FOLLOW TO ASSIST NEEDED.
--- NOTE | 2020-12-20 11:28 | NUR ---
Assumed care of pt at 0700. Pt lethargic and drowsy. On comfort care. Prn morphine administered per comfort. Dressing changes refused by family. Keeping patient comfortable. Family at bedside.
--- NOTE | 2020-12-20 14:37 | NUR ---
on-going assessment: teresa spoke with KLAUDIA ESCOBEDO AT [facility] WHO REPORTS THEY RECEIVED THE REFERRAL FOR [facility] AND SHE WAS GOING TO MEET AND TALK WITH PATIENTS TRINIDAD AND ALSO SPOKE WITH DESTINEY. PLANS WERE FOR KLAUDIA TO MEET WITH PATIENTS AROUND 1515 AND SOON THEY ARE DONE SHE IS GOING TO SEE IF THEIR ADMIT NURSE FOR GIP IS AVAILABLE IF PT QUALIFIES. AWAITING THE EVAL TO BE COMPLETED AT THIS TIME. AROUND 1435 BEDSIDE RN STATES PTS STATUS HAS CHANGED AND REQUESTED THAT COME BACK TO THE HOSPITAL. CM REACHED OUT TO PATIENTS [id number] AND HE STATES HE IS ON HIS WAY UP. TERESA ALSO LEFT A VM FOR DESTINEY. TERESA ALSO NOTIFIED FANNY RUDOLPH FROM [facility].
--- NOTE | 2020-12-20 16:13 | NUR ---
ON-GOING ASSESSMENT: CM SPOKE WITH BEDSIDE RN WHO REPORTS KAREN DIAMOND FROM [facility] MET WITH AND WAS HAVING SECOND THOUGHTS. BEDSIDE RN REACHED OUT TO PHYSICIAN WHO SPOKE WITH PATIENTS . PT WILL REMAIN ON COMFORT CARE HERE UNDER DR. ANTHONY CARE AND WILL NOT BE ADMITTED TO [facility] AT THIS TIME. CM WILL FOLLOW UP IN THE AM WITH [facility] WITH ANY UPDATES. CM ALSO LEFT A VM FOR SIGNAL MAINTAINER TO COME SEE AND PROVIDE ADDITIONAL SUPPORT IF ABLE. CM ALSO UPDATED KLAUDIA ESCOBEDO AT [facility]. CM WILL CONTINUE TO FOLLOW.
== END 2020-12-20 17:12 | disposition hospice, inpatient (51) | DRG 871 ==
LOC: ER 12:45 → EROBS 15:00 → ICU 15:00 → EROBS 15:01 → ICU 12-14 14:06 → 4S 12-19 11:25
PROVIDERS: Emergency Medicine; Hospitalist; Internal Medicine; Nurse Practitioner; ADMIT Hospitalist; ATTEND Hospitalist
PROC: 02H633Z Insertion of Infusion Device into Right Atrium, Percutaneous Approach (ICD-10-PCS; principal; 2020-12-13)
PROC: 4B02XSZ Measurement of Cardiac Pacemaker, External Approach (ICD-10-PCS; 2020-12-14)
PROC: 0W9G3ZZ Drainage of Peritoneal Cavity, Percutaneous Approach (ICD-10-PCS; 2020-12-14)
PROC: B41G1ZZ Fluoroscopy of Left Lower Extremity Arteries using Low Osmolar Contrast (ICD-10-PCS; 2020-12-14)
PROC: 30233N1 Transfusion of Nonautologous Red Blood Cells into Peripheral Vein, Percutaneous Approach (ICD-10-PCS; 2020-12-14)
PROC: B41F1ZZ Fluoroscopy of Right Lower Extremity Arteries using Low Osmolar Contrast (ICD-10-PCS; 2020-12-14)
PROC: B4151ZZ Fluoroscopy of Inferior Mesenteric Artery using Low Osmolar Contrast (ICD-10-PCS; 2020-12-14)
PROC: B4181ZZ Fluoroscopy of Bilateral Renal Arteries using Low Osmolar Contrast (ICD-10-PCS; 2020-12-14)
PROC: B4141ZZ Fluoroscopy of Superior Mesenteric Artery using Low Osmolar Contrast (ICD-10-PCS; 2020-12-14)
PROC: 5A1D70Z Performance of Urinary Filtration, Intermittent, Less than 6 Hours Per Day (ICD-10-PCS; 2020-12-16)
PROC: 5A1D70Z Performance of Urinary Filtration, Intermittent, Less than 6 Hours Per Day (ICD-10-PCS; 2020-12-19)
DX: A41.9 Sepsis, unspecified organism (principal); N18.6 End stage renal disease; E43 Unspecified severe protein-calorie malnutrition; R65.21 Severe sepsis with septic shock; J18.9 Pneumonia, unspecified organism; K57.91 Diverticulosis of intestine, part unspecified, without perforation or abscess with bleeding; I50.30 Unspecified diastolic (congestive) heart failure; K76.6 Portal hypertension; E11.52 Type 2 diabetes mellitus with diabetic peripheral angiopathy with gangrene; I96 Gangrene, not elsewhere classified; L97.129 Non-pressure chronic ulcer of left thigh with unspecified severity; L97.119 Non-pressure chronic ulcer of right thigh with unspecified severity; E87.2 Acidosis; E87.1 Hypo-osmolality and hyponatremia; G93.40 Encephalopathy, unspecified; I13.2 Hypertensive heart and chronic kidney disease with heart failure and with stage 5 chronic kidney disease, or end stage renal disease; I25.5 Ischemic cardiomyopathy; K72.90 Hepatic failure, unspecified without coma; D64.9 Anemia, unspecified; E78.5 Hyperlipidemia, unspecified; I48.0 Paroxysmal atrial fibrillation; F32.9 Major depressive disorder, single episode, unspecified; E11.649 Type 2 diabetes mellitus with hypoglycemia without coma; R53.81 Other malaise; E83.59 Other disorders of calcium metabolism; I25.10 Atherosclerotic heart disease of native coronary artery without angina pectoris; E65 Localized adiposity; I49.5 Sick sinus syndrome; Z82.49 Family history of ischemic heart disease and other diseases of the circulatory system; S51.812A Laceration without foreign body of left forearm, initial encounter; S51.811A Laceration without foreign body of right forearm, initial encounter; X58.XXXA Exposure to other specified factors, initial encounter; Z20.822 Contact with and (suspected) exposure to COVID-19; E11.22 Type 2 diabetes mellitus with diabetic chronic kidney disease; I95.89 Other hypotension; F41.9 Anxiety disorder, unspecified; E87.8 Other disorders of electrolyte and fluid balance, not elsewhere classified; Z51.5 Encounter for palliative care; Z66 Do not resuscitate; K74.60 Unspecified cirrhosis of liver; Z88.0 Allergy status to penicillin; Y93.89 Activity, other specified; Y92.89 Other specified places as the place of occurrence of the external cause; Y99.8 Other external cause status; Z91.041 Radiographic dye allergy status; I25.2 Old myocardial infarction; Z68.28 Body mass index [BMI] 28.0-28.9, adult; Z95.1 Presence of aortocoronary bypass graft; Z99.2 Dependence on renal dialysis
CPT/HCPCS: 10078; 10102; 32100; 85076

== ENCOUNTER 2020-12-20 17:20 | Inpatient (IN) | payer OTHER ==
[~2020-12-20 17:20] MED LIST: ACULAR LS5 ML OPHTHALMIC; APAP W/CODEINE1 TA2 PO; ASA81BEC PO; ATORVASTATIN CA80 MG PO; CEPACOL SORE T1 EAC7 PO; FUROSEMIDE 40 M40 MG PO; MEGESTROL ACETA40 MG PO; MIDODRINE HCL 55 M1 PO; NEPHRO-VITE TA0.8 MG PO; NITROSTAT0.4 M1 DISSOLVE; OXYCODONE HCL5 MG PO; PREDNISOLONE ACE5 ML RT. EYE; PROTONIX40 M2 PO; REFRESH CLASSI1 EACH EA. EYE; RENVELA0.8 GM PO; SODIUM THI12.5 GM/50 IV PUSH; TOPROL XL25 MG PO; TRESIBA100 UNIT/1 SUBQ; VITAMIN C500 M2 PO
[2020-12-20 21:19] VITALS: BP 89/34
--- NOTE | 2020-12-21 02:38 | NUR ---
ASSUMED CARE OF PT AT 1900. PT ON COMFORT CARE RESTING IN BED SPOUCE BY BEDSIDE. ORAL CARE PROVIDED AND ATROPINE GIVEN. MORPHINE GIVEN FOR AIR HUNGER. ON 2L OF O2. FALL PREC IN PLACE, PICC LINE INTACT. WILL CONT TO MONITOR.
--- NOTE | 2020-12-21 10:10 | NUR ---
ASSUMED PT CARE THIS AM. PT IS COMFORT CARE. PT AT THE BEDSIDE. PT HAS L IJ PICC LINE TRIPLE LUMEN. PT HAS LOW AIR MATTRESS. PT IS ON 2L NC FOR COMFORT. GIVEN MORPHINE FOR AIR HUNGER. PT ON THE BED, BED ON THE LOWEST POSITION, SIDE RAILS UP, CALL LIGHT WITHIN REACH. WILL CONTINUE TO MONITOR PT.
--- NOTE | 2020-12-21 13:18 | NUR ---
PATIENT REMAINS ON COMFORT CARE WITH [facility] THROUGH [facility]. CM SPOKE WITH PETER ESCOBEDO TO UPDATE AND PETER RN SAW PATIENT AT THE BEDSIDE TODAY. PTS IS AT THE BEDSIDE. CM WILL CONTINUE TO FOLLOW.
[2020-12-21 21:52] VITALS: BP 72/21
--- NOTE | 2020-12-22 00:56 | NUR ---
ASSESSED AT START OF SHIFT. PT ON COMFORT CARE SPOUCE BY BEDSIDE. IV MORPHINE GIVEN FOR COMFORT AND ATROPINE FOR DRYNESS. ON 2L OF O2. WILL CONT TO MONITOR FALL PREC IN PLACE AND WILL CONT TO MONITOR.
--- NOTE | 2020-12-22 10:34 | NUR ---
ASSUMED CARE OF PT AT 0700 THIS MORNING. PT IS ON COMFORT CARE WITH HOSPICE ON CASE WELL. PT IS NONRESPONSIVE AND NONVERBAL. RESP ARE LABORED WITH COURSE RATTLE RESP. ULCER/WOOND SACRAL AREA. IJ AND PICC IN PLACE BILAT. PT'S IS AT BEDSIDE. ASSESSMENTS NOTED IN CHART AND OTHERWISE UNREMARKABLE. MEDS AND TX GIVEN NEEDED AND SCHEDULED. WILL MONITOR AND NOTE ANY CHANGES.
--- NOTE | 2020-12-22 12:10 | NUR ---
CM SPOKE WITH [facility] YURIDIA ARTURO THIS AFTERNOON. SHE INDICATED THAT SHE WAS CHECKING ON PT'S CODE STATUS CM INDICATED THAT IN OUR SYSTEM PT SHOWS A NO CODE. CARE TEAM INDICATED THAT PT IS ACTIVELY DYING AND THAT SPOUSE IS AT BESIDE. ARTURO WILL BE OUT AROUND 1400 THIS AFTERNOON. CM FOLLOWING SHOULD THERE BEEN ANY NEEDS.
[2020-12-22 19:55] VITALS: BP 55/23
--- NOTE | 2020-12-23 05:00 | NUR ---
PT ON COMFORT CARE SPOUSE BY BEDSIDE. IV MORPHINE AND ATROPINE GIVEN. ON 2L OF OXYGEN. REPOSITION FOR COMFORT. WILL CONT TO MONITOR.
[2020-12-23 07:55] VITALS: BP 55/15
--- NOTE | 2020-12-23 09:24 | NUR ---
ASSUMED PT CARE THIS AM. PT IS SOMNOLENT. PT HAS IV SITE ON L IJ TRIPLE LUMEN. GIVEN MORPHONE IV PUSH AND ATROPINE NEEDED. PT HAS LOW AIR MATTRESS. PT IS ON 2L NC 02. PT WAS AT THE BEDSIDE. PT IS COMFORT CARE. WILL CONTINUE TO MONITOR PT.
[2020-12-23 19:44] VITALS: BP 86/63
--- NOTE | 2020-12-24 00:11 | NUR ---
ON COMFORT CARE.SPOUSE AT BEDSIDE. SLOW, REGULAR BREATHING. COOL HANDS AND FEET.APEARS COMFORTABLE.CONTINUES ON MOSTLY PRN MORPHINE AND ATROPINE.
[2020-12-24 07:09] VITALS: BP 144/123; BP 54/17
--- NOTE | 2020-12-24 11:05 | NUR ---
ASSUMED PT CARE THIS AM. STILL SOMNOLENT BUT WAS ABLE TO OPEN EYES DURING HANDS OF REPORT. GIVEN MORPHINE AND ATROPINE NEEDED. PT IV SITE ON L IJ TRIPLE LUMEN PICC LINE STILL INTACT. PT IS NPO BUT PROVIDED MOUTH CARE NEEDED. PT AT THE BEDSIDE. WILL CONTINUE TO MONITOR PT FOR COMFORT CARE.
[2020-12-24 11:39] VITALS: BP 54/17
[2020-12-24 19:10] VITALS: BP 55/20
--- NOTE | 2020-12-24 20:36 | NUR ---
PT IS WITH EYES CLOSED. SPOUSE BY THE BEDSIDE AND SAYS " SHE IS THE SAME". BP REMAINS LOW. COMFORT CARE. APPEARS COMFORTABLE. BREATHING NON LABORED.WILL CONTINUE WITH CARE.
[2020-12-25 07:14] VITALS: BP 56/35
--- NOTE | 2020-12-25 16:24 | NUR ---
ASSUMED CARE OF PT AT 0700 THIS MORNING. PT IS IN COMFORT CARE WITH HOSPICE ON BOARD. PT IS RESTING COMFORTABLY AND HASN'T CHANGED SINCE LAST CARE. ASSESSMENTS NOTED ON CHART AND OTHERWISE UNREMARKABLE. IJ AND CL STILL IN PLACE. MEDS AND TX NEEDED AND SCHEDULED. WILL MONITOR AND NOTE ANY CHANGES.
--- NOTE | 2020-12-26 04:27 | NUR ---
ASSUMED PT CARE 1939. PT IS ALERT BUT NON-VERBAL. SPOUSE IS AT BEDSIDE. PT IS ON COMFORT CARE. PT IS ON OXYGEN 2L. ASSESSMENT DONE AND CHARTED. MEDS GIVEN PER EMAR ORDERS. NO VISIBLE SIGN OF DISTRESS NOTED. FALL PRECAUTIONS IN PLACE. WILL CONTINUE TO MONITOR.
[2020-12-26 07:42] VITALS: BP 55/22
--- NOTE | 2020-12-26 10:16 | NUR ---
PT IS UNRESPONSIVE AND NONVERBAL. sHE HAS A picc IN HER lEFT JUGULAR. REMAINS INCONTINENT OF B&B. RECEIVING COMFORT CARE. hOSPICE NURSE CAME IN AND SAID SHE DID NOT THINK SHE WOULD BE ALIVE THROUGH TODAY. REMAINS AT BEDSIDE. bED IN LOW POSITION AND CALL LIGHT IS WITHIN REACH.
--- NOTE | 2020-12-26 14:26 | NUR ---
on-going assessment: TERESA REVIEWED CHART. PT REMAINS [facility] WITH [facility]. CM MET WITH PATIENT AT THE BEDSIDE AND REPORTS DOING OK. CM ASKED PT IF HE WOULD LIKE TO SPEAK WITH SPIRITUAL CARE AND PTS DECLINED STATING HE IS DOING OK. TERESA ALSO REACHED OUT TO ARTURO SHI AT [facility] TO SEE IF SHE NEEDED ANY ADDITIONAL INFORMATION AT THIS TIME AND VM WAS LEFT. CM WILL CONTINUE TO FOLLOW TO ASSIST NEEDED.
--- NOTE | 2020-12-26 18:30 | NUR ---
Dr. Shipman called and said to DC the Central line in left jugular. Called warehouse stocker who said RN's should not be pulling lines out of Jugular and to call IV team. Paged IV team 3X LM for them at 18:30pm. Pt is breathing very shallow 21 x per minute. Changed brie underneath her. Bed in low position.
--- NOTE | 2020-12-27 03:07 | NUR ---
ASSUMED PT CARE AT 1900. PT IS ON COMFORT CARE. PT IS ALERT BUT NON-VERBAL. PT IS ON 2L VIA NC. PT HAS AGOBAL BREATH WHICH IS VERY COARSE. PT HAS L IJ WITH 3 LUMENS. SPOUSE IS AT BEDSIDE. FALL PRECAUTIONS IN PLACE. WILL CONTINUE TO MONITOR.
== END 2020-12-27 06:00 | DRG 441 ==
LOC: 4S 17:20
PROVIDERS: ADMIT Internal Medicine; ATTEND Internal Medicine
DX: K72.90 Hepatic failure, unspecified without coma (principal); N18.6 End stage renal disease; E43 Unspecified severe protein-calorie malnutrition; E87.1 Hypo-osmolality and hyponatremia; I50.32 Chronic diastolic (congestive) heart failure; K92.1 Melena; K76.6 Portal hypertension; R18.8 Other ascites; J98.19 Other pulmonary collapse; E87.2 Acidosis; K74.60 Unspecified cirrhosis of liver; E11.22 Type 2 diabetes mellitus with diabetic chronic kidney disease; E78.5 Hyperlipidemia, unspecified; F32.9 Major depressive disorder, single episode, unspecified; I48.0 Paroxysmal atrial fibrillation; E11.42 Type 2 diabetes mellitus with diabetic polyneuropathy; R16.1 Splenomegaly, not elsewhere classified; K80.20 Calculus of gallbladder without cholecystitis without obstruction; I95.9 Hypotension, unspecified; E87.8 Other disorders of electrolyte and fluid balance, not elsewhere classified; E83.59 Other disorders of calcium metabolism; I70.8 Atherosclerosis of other arteries; I25.5 Ischemic cardiomyopathy; I49.5 Sick sinus syndrome; Z51.5 Encounter for palliative care; Z20.822 Contact with and (suspected) exposure to COVID-19; Z99.2 Dependence on renal dialysis; Z88.0 Allergy status to penicillin; I25.2 Old myocardial infarction; Z91.041 Radiographic dye allergy status
CPT/HCPCS: 10102